=== PATIENT | male | born 1945 | race Caucasian/White ===

== ENCOUNTER 2017-05-28 18:31 | Emergency (ER) | payer MEDICARE, MEDICAID ==
[~2017-05-28] VITALS: Ht 165.1 cm; Wt 77.0 kg
[2017-05-28] MEDS ORDERED: AMLO2.5T45 PO (18:47)
[2017-05-28] MEDS ORDERED: METF500T4 PO (18:47)
[2017-05-28] MEDS ORDERED: HYDROCODONE/APAP 7.5/325MG 1 TAB TABLET PO ONE (22:15)
[2017-05-29] MEDS ORDERED: BACITRACIN ZINC OINT UDPKT TOP NR (00:15)
[2017-05-29 00:27] VITALS: BP 132/67
== END 2017-05-29 00:27 | disposition home or self-care (01) ==
LOC: ER 21:42
DX: S42.92XA Fracture of left shoulder girdle, part unspecified, initial encounter for closed fracture (principal); S80.02XA Contusion of left knee, initial encounter; S50.02XA Contusion of left elbow, initial encounter; S40.212A Abrasion of left shoulder, initial encounter; S80.212A Abrasion, left knee, initial encounter; V19.88XA Pedal cyclist (driver) (passenger) injured in other specified transport accidents, initial encounter; Y93.01 Activity, walking, marching and hiking; Y92.488 Other paved roadways as the place of occurrence of the external cause; Y99.8 Other external cause status
CPT/HCPCS: 70450; 73030; 73080; 73562; 99284; Z7610